=== PATIENT | female | born 1990 | race Caucasian/White ===

== ENCOUNTER 2018-09-09 14:03 | Emergency (ER) | payer SELFPAY ==
[~2018-09-09] VITALS: Ht 154.9 cm; Wt 77.1 kg
--- NOTE | 2018-09-09 14:30 | PHYS DOC ---
Past History Past Medical History: No Pertinent History Past Surgical History: Alcohol Use: None Drug Use: None Adult General Chief Complaint Chief Complaint: DIZZY/LIGHT HEADED [place] [employer] HPI Patient is a 28 year old female who presents with complaining of one episode of panic attack with lightheadedness, bilateral hand numbness, hyperventilation, palpitation that resolved at arrival to ER. Patient states she has history of panic attack previously and feeling fine right now and doesn't want any treatment. She denies suicidal and homicidal ideation and hallucination. Review of Systems Review of Systems Constitutional: Denies fever or chills [] Eyes: Denies change in visual acuity, redness, or eye pain [] HENT: Denies nasal congestion or sore throat [] Respiratory: Denies cough or shortness of breath [] Cardiovascular: No additional information not addressed in HPI [] GI: Denies abdominal pain, nausea, vomiting, bloody stools or diarrhea [] : Denies dysuria or hematuria [] Musculoskeletal: Denies back pain or joint pain [] Integument: Denies rash or skin lesions [] Neurologic: Denies headache, focal weakness or sensory changes [] Endocrine: Denies polyuria or polydipsia [] All other systems were reviewed and found to be within normal limits, except as documented in this note. Physical Exam Physical Exam Constitutional: Well developed, well nourished, no acute distress, non-toxic appearance. [] HENT: Normocephalic, atraumatic Eyes: PERRLA, EOMI, conjunctiva normal, no discharge. [] Neck: Normal range of motion, no tenderness, supple, no stridor. [] Cardiovascular:Heart rate regular rhythm, no murmur [] Lungs & Thorax: Bilateral breath sounds clear to auscultation [] Skin: Warm, dry, no erythema, no rash. [] Back: No tenderness, no CVA tenderness. [] Extremities: No tenderness, no cyanosis, no clubbing, ROM intact, no edema. [] Neurologic: Alert and oriented X 3, normal motor function, normal sensory function, no focal deficits noted. [] Psychologic: Affect normal, judgement normal, mood normal. [] Current Patient Data Vital Signs Vital Signs Date Time Temp Pulse Resp B/P (MAP) Pulse Ox O2 Delivery O2 Flow Rate FiO2 09/09/18 14:17 98.5 82 24 100 Room Air EKG EKG [] Radiology/Procedures Radiology/Procedures [] Course & Med Decision Making Course & Med Decision Making Evaluation of patient in ER showed 28-year-old female patient had 1 episodes of panic attack at home and resolved at arrival to ER and doesn't want any treatment in ER. Dragon Disclaimer Dragon Disclaimer This electronic medical record was generated, in whole or in part, using a voice recognition dictation system. Departure Departure: Impression: Primary Impression: Panic attack Additional Impression: Hyperventilation Disposition: 01 HOME, SELF-CARE (at 1430) Condition: IMPROVED Referrals: DANNI ADKINS MD (PCP) Patient Instructions: Anxiety and Panic Attacks, Hyperventilation Additional Instructions: Drink plenty of liquids Follow-up with your primary care physician in 3-5 days Return to ER if not getting better Problem Qualifiers LUDIN GOLDEN MD Sep 09, 2018 14:30
[2018-09-09 14:51] VITALS: BP 146/86
== END 2018-09-09 14:52 | disposition home or self-care (01) ==
LOC: ER 14:03
DX: F41.0 Panic disorder [episodic paroxysmal anxiety] (principal); R42 Dizziness and giddiness
CPT/HCPCS: 99281

== ENCOUNTER 2020-06-25 16:35 | Emergency (ER) | payer SELFPAY ==
[~2020-06-25] VITALS: Ht 154.9 cm; Wt 81.0 kg
[2020-06-25] MEDS ORDERED: IV NORMAL SALINE 1,000ML 1,000 ML IV ONE (18:00)
[2020-06-25] MEDS ORDERED: diphenhydrAMINE 50 MG/ML VIAL IVP ONE (18:00)
[2020-06-25] MEDS ORDERED: METOCLOPRAMIDE HCL 10 MG/2 ML VIAL. IVP ONE (18:00)
--- NOTE | 2020-06-25 18:10 | PHYS DOC ---
Past History Past Medical History: No Pertinent History Past Surgical History: Alcohol Use: None Drug Use: None General Adult EDM: Chief Complaint: HEADACHE HPI: HPI: [id number] female presents with headache. Patient woke up this morning with frontal headache that radiated to the occipital region, right arm numbness, and blurry vision. She was very concerned about this because she has not had the symptoms before. The blurry vision resolved over some amount of time. Tingling improved over about 20 minutes. Continued to have this pounding type headache all day. Is moderate in intensity. She had a second episode where her vision became blurry she should come the emergency room for evaluation. The vision has improved at this time. Patient does not have a history of chronic headaches or migraines. She denies any trauma or falls. She has been eating and drinking normally. Denies fever, chills, travel, DVT history, control. Review of Systems: Review of Systems: Constitutional: Denies fever or chills Eyes: Blurry vision HENT: Denies nasal congestion or sore throat Respiratory: Denies cough or shortness of breath Cardiovascular: Denies chest pain or edema GI: Denies abdominal pain, nausea, vomiting, bloody stools or diarrhea : Denies dysuria Musculoskeletal: Denies back pain or joint pain Integument: Denies rash Neurologic: Headache. Denies focal weakness or sensory changes Endocrine: Denies polyuria or polydipsia Lymphatic: Denies swollen glands Psychiatric: Denies depression or anxiety Heart Score: Risk Factors: Risk Factors: DM, Current or recent (<one month) smoker, HTN, HLP, family history of CAD, obesity. Risk Scores: Score 0 - 3: 2.5% MACE over next 6 weeks - Discharge Home Score 4 - 6: 20.3% MACE over next 6 weeks - Admit for Clinical Observation Score 7 - 10: 72.7% MACE over next 6 weeks - Early Invasive Strategies Current Medications: Current Meds: Current Medications Medications (Trade) Dose Ordered Sig/Lalit Start Time Stop Time Status Last Admin Dose Admin Diphenhydramine HCl (Benadryl) 25 mg 1X ONCE 06/25/20 18:00 06/25/20 18:05 DC Metoclopramide HCl (Reglan Vial) 10 mg 1X ONCE 06/25/20 18:00 06/25/20 18:05 DC Sodium Chloride 1,000 ml @ 1,000 mls/hr 1X ONCE 06/25/20 18:00 06/25/20 18:59 Allergies: Allergies: Allergies Coded Allergies Type Severity Reaction Last Updated Verified No Known Drug Allergies 06/25/20 No Physical Exam: PE: Constitutional: Well developed, well nourished, obese, no acute distress, non- toxic appearance. [] HENT: Normocephalic, atraumatic, bilateral external ears normal, oropharynx moist, no oral exudates, nose normal. [] Eyes: PERRLA, EOMI, conjunctiva normal, no discharge. [] Neck: Normal range of motion, no tenderness, supple, no stridor. [] Cardiovascular: Heart rate regular rhythm, no murmur [] Lungs & Thorax: Bilateral breath sounds clear to auscultation [] Abdomen: Bowel sounds normal, soft, no tenderness, no masses, no pulsatile masses. [] Skin: Warm, dry, no erythema, no rash. [] Back: No tenderness, no CVA tenderness. [] Extremities: No tenderness, no cyanosis, no clubbing, ROM intact, no edema. [] Neurologic: Alert and oriented X 3, normal motor function, normal sensory function, no focal deficits noted. [] Psychologic: Affect normal, judgement normal, mood normal. [] EKG: EKG: [] Radiology/Procedures: Radiology/Procedures: [] Impressions: Exam: CT head INDICATION: Headache, blurred vision TECHNIQUE: Sequential axial images through the head were obtained without the administration of IV contrast. Comparisons: None FINDINGS: No focal parenchymal lesion or hemorrhage is identified. There is no midline shift or sulcal effacement. No acute vascular territory infarction is identified. Camejo-white distinction is preserved. The ventricular system is within normal limits without compression hydrocephalus. The basal cisterns are well maintained. The visualized portions of the paranasal sinuses and mastoid air cells are well-pneumatized. No acute fractures. IMPRESSION: No acute intracranial abnormality. Exposure: One or more of the following in the visualized dose reduction techniques were utilized for this examination: 1. Automated exposure control 2. Adjustment of the MA and/or KV according to patient size Use of iterative of reconstructive technique Electronically signed by: Jesus Alberto Howard MD (06/25/2020 6:27 PM) [id number] DICTATED AND SIGNED BY: JESUS ALBERTO HOWARD MD DATE: 06/25/20 1827 CC: IRA BREAUX DO; DANNI ADKINS MD ~ Course & Med Decision Making: Course & Med Decision Making Pertinent Labs and Imaging studies reviewed. (See chart for details) The patient's labs are unremarkable. Her urinalysis is negative for infection. She is not . CT scan is negative for acute findings. Patient has been given a liter normal saline, 30 mg of Toradol, 25 mg of Benadryl, 10 mg Reglan, and 4 mg of Zofran for her headache and dizziness. Started to feel more dizzy as we are giving her these medications. We will see if they improve her symptoms. Patient is feeling better at this time. She is stable for discharge. [] Dragon Disclaimer: Dragon Disclaimer: This electronic medical record was generated, in whole or in part, using a voice recognition dictation system. Departure Departure: Impression: Primary Impression: Headache Qualified Codes: R51 - Headache Disposition: 01 HOME/RESIDENCE PRIOR TO ADM Condition: STABLE Referrals: DANNI ADKINS MD (PCP) Patient Instructions: General Headache Without Cause, [id number] Justification of Admission: Justification of Admission: Justification of Admission Dx: N/A IRA BREAUX DO Jun 25, 2020 18:10
[2020-06-25 18:14] LABS: BASO # 0.1 x10^3/uL (0.0-0.2); BASO % 1 % (0-3); EOS # 0.1 x10^3/uL (0.0-0.7); EOS % 1 % (0-3); HEMATOCRIT 37.2 % (36.0-47.0); HEMOGLOBIN 12.5 g/dL (12.0-15.5); LYMPH # 2.3 x10^3/uL (1.0-4.8); LYMPH % 27 % (24-48); MEAN CORPUSCULAR HEMOGLOBIN 29 pg (25-35); MEAN CORPUSCULAR HGB CONC 34 g/dL (31-37); MEAN CORPUSCULAR VOLUME 87 fL (79-100); MONO # 0.6 x10^3/uL (0.0-1.1); MONO % 7 % (0-9); NEUT # 5.6 x10^3uL (1.8-7.7); NEUT % 64 % (31-73); PLATELET COUNT 298 x10^3/uL (140-400); RED CELL DISTRIBUTION WIDTH 12.4 % (11.5-14.5); WHITE BLOOD COUNT 8.7 x10^3/uL (4.0-11.0)
[2020-06-25 18:23] LABS: CALCIUM 8.5 mg/dL (8.5-10.1); CREATININE 0.9 mg/dL (0.6-1.0); POTASSIUM 3.8 mmol/L (3.5-5.1)
[2020-06-25 18:23] LABS: BACTERIA,URINE 0 /HPF (0-FEW); BILIRUBIN,URINE NEG (NEG); CLARITY,URINE CLEAR; COLOR,URINE STRAW; GLUCOSE,URINE NEG (NEG); NITRITE,URINE NEG (NEG); RBC,URINE OCC /HPF (0-2); SQUAMOUS EPITHELIAL CELL,UR FEW /LPF; UROBILINOGEN,URINE 0.2 mg/dL (0.2 mg/dL); WBC,URINE 0 /HPF (0-4)
[2020-06-25 18:24] LABS: U PREG PATIENT NEGATIVE (NEG)
[2020-06-25 18:27] LABS: BARBITURATES NEG (NEG); BENZODIAZEPINES NEG (NEG); CANNABINOIDS NEG (NEG); COCAINE NEG (NEG); METHADONE NEG (NEG); OPIATES NEG (NEG); PHENCYCLIDINE NEG (NEG)
[2020-06-25 18:28] LABS: ALBUMIN 3.9 g/dL (3.4-5.0); TOTAL BILIRUBIN 0.2 mg/dL (0.2-1.0); TOTAL PROTEIN 7.8 g/dL (6.4-8.2)
[2020-06-25 18:28] LABS: AMPHETAMINE/METHAMPHETAMINE NEG (NEG)
--- NOTE | 2020-06-25 18:30 | RAD ---
Exam: CT head INDICATION: Headache, blurred vision TECHNIQUE: Sequential axial images through the head were obtained without the administration of IV contrast. Comparisons: None FINDINGS: No focal parenchymal lesion or hemorrhage is identified. There is no midline shift or sulcal effacement. No acute vascular territory infarction is identified. Camejo-white distinction is preserved. The ventricular system is within normal limits without compression hydrocephalus. The basal cisterns are well maintained. The visualized portions of the paranasal sinuses and mastoid air cells are well-pneumatized. No acute fractures. IMPRESSION: No acute intracranial abnormality. Exposure: One or more of the following in the visualized dose reduction techniques were utilized for this examination: 1. Automated exposure control 2. Adjustment of the MA and/or KV according to patient size Use of iterative of reconstructive technique Electronically signed by: Jesus Alberto Peralta MD (06/25/2020 6:27 PM) [id number]
[2020-06-25] MEDS ORDERED: ONDANSETRON PF 4 MG/2 ML VIAL. IVP ONE (18:45)
[2020-06-25] MEDS ORDERED: KETOROLAC 30 MG/ML VIAL. IVP ONE (18:45)
[2020-06-25 20:19] VITALS: BP 121/70
== END 2020-06-25 20:35 | disposition home or self-care (01) ==
LOC: ER 16:35
DX: R51 Headache (principal); R20.0 Anesthesia of skin; H53.8 Other visual disturbances
CPT/HCPCS: 36415; 70450; 80053; 80307; 81001; 81025; 85025; 96361; 96374; 96375; 99285; J1200; J1885; J2405; J2765; J7030

== ENCOUNTER 2021-05-25 13:39 | Emergency (ER) | payer BC ==
[~2021-05-25] VITALS: Ht 154.9 cm; Wt 80.8 kg
[2021-05-25] MEDS ORDERED: IBUPROFEN 600 MG TABLET. PO ONE (14:00)
--- NOTE | 2021-05-25 14:02 | PHYS DOC ---
Past History Past Medical History: No Pertinent History Past Surgical History: No Surgical History, Smoking: Non-smoker Alcohol Use: None Drug Use: None General Adult EDM: Chief Complaint: FATIGUE Problems: (1) Fatigue HPI: HPI: 30-year-old female presents to the emergency department complaining of fatigue for the past several days along with intermittent nausea, headache not feeling well along with intermittent chills without fever. She denies any recent exposure to Covid contacts. She states that she has been taking Tylenol and ibuprofen at home with good effect on her headache. She states that her symptoms at this moment are moderate. She is currently on her cycle. The patient denies vomiting, fever, chills, chest pain, shortness of breath, abdominal pain, urinary symptoms, cough, recent trauma, or any other complaints. Review of Systems: Review of Systems: ROS otherwise negative except for what was stated in the HPI Family History: Family History: Noncontributory Allergies: Allergies: Allergies Coded Allergies Type Severity Reaction Last Updated Verified No Known Drug Allergies 06/25/20 No Physical Exam: PE: Constitutional: No acute distress, non-toxic appearance. HENT: Atraumatic, bilateral external ears normal, nose normal. Eyes: PERRLA, EOMI, conjunctiva normal, no discharge. Neck: Normal range of motion, supple, no stridor. Cardiovascular: Heart rate regular rhythm. 2+ radial pulses Lungs & Thorax: No respiratory distress, symmetrical expansion. Bilateral breath sounds clear to auscultation Abdomen: Soft, no tenderness Skin: Warm, dry. Extremities: No tenderness, no cyanosis, ROM intact, no edema. Neurologic: Alert and oriented X 3, normal motor function, normal sensory function, no focal deficits noted. Non ataxic gait. GCS 15. Psychologic: Affect normal, judgment normal, mood normal. Current Patient Data: Labs: Laboratory Tests Test 05/25/21 14:10 05/25/21 14:17 Urine Collection Type Unknown Urine Color Yellow Urine Clarity Clear Urine pH 5.5 Urine Specific [place] >=1.030 Urine Protein Neg (NEG-TRACE) Urine Glucose (UA) Neg mg/dL (NEG) Urine Ketones (Stick) Neg mg/dL (NEG) Urine Blood Small (NEG) Urine Nitrite Neg (NEG) Urine Bilirubin Neg (NEG) Urine Urobilinogen Dipstick 0.2 mg/dL (0.2 mg/dL) Urine Leukocyte Esterase Neg (NEG) Urine RBC Occ /HPF (0-2) Urine WBC 0 /HPF (0-4) Urine Squamous Epithelial Cells Few /LPF Urine Bacteria 0 /HPF (0-FEW) POC Urine HCG, Qualitative hcg negative (Negative) Vital Signs: Vital Signs Date Time Temp Pulse Resp B/P (MAP) Pulse Ox O2 Delivery O2 Flow Rate FiO2 05/25/21 13:50 98.5 82 20 138/82 98 Room Air Heart Score: C/O Chest Pain: No Course & Med Decision Making: Course & Med Decision Making Patient clinically looks extremely well, she has nonspecific complaints with benign exam, test negative. She was tested for Covid today and was advised to self quarantine until her results return. She refused any IM medications Departure Departure: Impression: Primary Impression: Not feeling great Disposition: 01 HOME / SELF CARE / HOMELESS Condition: STABLE Referrals: LE ORTIZ MD (PCP) Patient Instructions: General Headache Without Cause Additional Instructions: You were seen in the Emergency Department for headache. Please drink plenty of fluids -- at least 6-8 glasses of water per day. Dehydration can often precipitate headaches. Avoid alcohol and sugary or caff einated beverages. Return to the Emergency Department, day or night, if you develop recurrent or worsening headache, vision changes, difficulty eating or drinking due to nausea or vomiting, weakness or numbness in the limbs, difficulty walking or fever. LLUVIA LOMAS DO May 25, 2021 14:02
[2021-05-25 14:53] LABS: BACTERIA,URINE 0 /HPF (0-FEW); BILIRUBIN,URINE NEG (NEG); CLARITY,URINE CLEAR; COLOR,URINE YELLOW; GLUCOSE,URINE NEG (NEG); NITRITE,URINE NEG (NEG); RBC,URINE OCC /HPF (0-2); SQUAMOUS EPITHELIAL CELL,UR FEW /LPF; UROBILINOGEN,URINE 0.2 mg/dL (0.2 mg/dL); WBC,URINE 0 /HPF (0-4)
[2021-05-25 15:00] VITALS: BP 121/80
== END 2021-05-25 15:00 | disposition home or self-care (01) ==
LOC: ER 13:39
DX: R53.83 Other fatigue (principal); R51.9 Headache, unspecified; Z32.02 Encounter for pregnancy test, result negative
CPT/HCPCS: 81001; 81025; 99283; C9803; U0003